=== PATIENT | female | born 1980 | race Caucasian/White ===

== ENCOUNTER 2019-06-05 16:12 | Inpatient (IN) | payer OTHER ==
[~2019-06-05] VITALS: Ht 160 cm; Wt 59.2 kg
[2019-06-05] MEDS ORDERED: ONDANSETRON HCL 4 MG/2 ML VIAL IVP PRN (17:15)
[2019-06-05] MEDS ORDERED: ACETAMINOPHEN 325 MG TABLET PO PRN (17:15)
[2019-06-05] MEDS ORDERED: 0.9% SODIUM CHLORIDE 10 ML SYRINGE IVP PRN (17:15)
[2019-06-05 18:20] LABS: BASOPHILS % (AUTO) 0.8 % (0.0-2.0); EOSINOPHILS % (AUTO) 0.4 % (1.0-6.0); HEMATOCRIT 39.1 % (36-46); HEMOGLOBIN 12.7 g/dL (12.0-16.0); LYMPHOCYTES # (AUTO) 1.8 K/uL (1.0-4.8); LYMPHOCYTES % (AUTO) 20.4 % (22.0-44.0); MEAN CORPUSCULAR HGB CONC 32.6 G/dL (31.0-37.0); MEAN CORPUSCULAR VOLUME 83 fL (80-100); MONOCYTES # (AUTO) 0.5 K/uL (0.1-1.0); MONOCYTES % (AUTO) 5.6 % (2.0-9.0); NEUTROPHILS # (AUTO) 6.4 K/uL (1.8-7.7); NEUTROPHILS % (AUTO) 72.8 % (40.0-70.0); PLATELET COUNT (AUTO) 399 K/uL (150-450); RED BLOOD CELL COUNT(AUTO) 4.73 MIL/uL (4.00-5.20); RED CELL DISTRIBUTION WIDTH 14.4 % (11.5-14.5)
[2019-06-05 18:36] LABS: ANION GAP 9 mmol/L (8-16); CALCIUM, TOTAL 8.8 mg/dL (8.8-10.5); CARBON DIOXIDE 25 mmol/L (22-29); CHLORIDE 104 mmol/L (98-107); CREATININE 0.65 mg/dL (0.60-1.30); GLOMERULAR FILTR. RATE CALC > 60 mL/min (>60); GLUCOSE,RANDOM 99 mg/dL (70-110); POTASSIUM 3.8 mmol/L (3.5-5.1); SODIUM SERUM 138 mmol/L (136-145); UREA NITROGEN, BLOOD 9 mg/dL (7-18)
[2019-06-05 18:50] LABS: ALANINE AMINOTRANSFERASE 22 U/L (12-78); ALBUMIN 3.5 g/dL (3.4-5.0); ALKALINE PHOSPHATASE 92 U/L (46-116); ASPARTATE AMINOTRANSFERASE 25 U/L (15-37); BILIRUBIN,TOTAL 0.3 mg/dL (0.1-1.0); HCG,QUANTITATIVE < 1 mIU/mL (0-6); LIPASE 45 U/L (73-393); TOTAL PROTEIN, SERUM 7.3 g/dL (6.4-8.2)
[2019-06-05 19:35] VITALS: BP 125/79
[2019-06-05] MEDS ORDERED: METOCLOPRAMIDE HCL 5 MG/ML 2 ML VIAL IVP PRN (20:15)
[2019-06-05] MEDS ORDERED: LORazepam 2 MG/ML VIAL IVP PRN (20:15)
[2019-06-05] MEDS ORDERED: DICYCLOMINE HCL 10 MG CAPSULE PO PRN (20:15)
[2019-06-05] MEDS ORDERED: LOPERAMIDE HCL 2 MG CAPSULE PO PRN (20:15)
[2019-06-05] MEDS ORDERED: INFLUENZA VIRUS VACCINE QVS 2019-20 (3YR+)/PF 60 MCG/0.5 ML SYRINGE IM ONE (21:30)
[2019-06-05] MEDS: TEMAZEPAM 15 MG CAPSULE PO SCH (22:05)
[2019-06-06 04:30] VITALS: BP 97/56
[2019-06-06] MEDS: ACETAMINOPHEN/CODEINE 300-15 MG TABLET PO PRN (06:01)
[2019-06-06 08:26] VITALS: BP 98/70
[2019-06-06] MEDS ORDERED: SODIUM CHLORIDE 0.9% 1,000 ML ONE (14:51)
[2019-06-06 16:59] VITALS: BP 104/65
[2019-06-06 20:10] VITALS: BP_SYST 150; BP_SYST 95; BP_DIAS 49; BP_DIAS 85
[2019-06-06] MEDS: TEMAZEPAM 15 MG CAPSULE PO SCH (21:00)
[2019-06-06 23:30] VITALS: BP 94/72
[2019-06-07] MEDS: ACETAMINOPHEN/CODEINE 300-15 MG TABLET PO PRN ×2 (00:22→08:18)
[2019-06-07 04:55] VITALS: BP 106/56
[2019-06-07 08:03] VITALS: BP 96/54
[2019-06-07] MEDS: PANTOPRAZOLE SODIUM 40 MG DR TABLET PO SCH (08:15)
[2019-06-07] MEDS ORDERED: SODIUM CHLORIDE 0.9% 1,000 ML ONE (13:09)
[2019-06-07 16:02] VITALS: BP 102/62
[2019-06-07 20:22] VITALS: BP 94/49
[2019-06-07] MEDS: TEMAZEPAM 15 MG CAPSULE PO SCH (20:51)
[2019-06-08 04:26] VITALS: BP 99/57
[2019-06-08 07:41] VITALS: BP 91/57
[2019-06-08] MEDS: PANTOPRAZOLE SODIUM 40 MG DR TABLET PO SCH (09:51)
[2019-06-08 15:00] VITALS: BP 92/57
[2019-06-08] MEDS ORDERED: SODIUM CHLORIDE 0.9% 1,000 ML ONE (16:23)
[2019-06-08 19:50] VITALS: BP 108/54
[2019-06-08] MEDS: TEMAZEPAM 15 MG CAPSULE PO SCH (21:02)
[2019-06-09 06:22] VITALS: BP 107/68
[2019-06-09 09:06] VITALS: BP 115/74
[2019-06-09] MEDS: PANTOPRAZOLE SODIUM 40 MG DR TABLET PO SCH (09:55)
[2019-06-09] MEDS: ACETAMINOPHEN/CODEINE 300-15 MG TABLET PO PRN (09:57)
[2019-06-09 16:15] VITALS: BP 110/52
[2019-06-09] MEDS ORDERED: DiphenhydrAMINE HCL 25 MG CAPSULE PO PRN (18:15)
[2019-06-09] MEDS ORDERED: ACETAMINOPHEN 325 MG TABLET PO PRN (18:15)
[2019-06-09 19:55] VITALS: BP 95/55
[2019-06-10 04:55] VITALS: BP 111/71
[2019-06-10] MEDS: PANTOPRAZOLE SODIUM 40 MG DR TABLET PO SCH (08:31)
[2019-06-10 11:30] VITALS: BP 107/81
== END 2019-06-10 11:30 | DRG 897 ==
LOC: EMS 16:16 → 6S 18:16
PROVIDERS: ADMIT Internal Medicine; ATTEND Internal Medicine
DX: F11.23 Opioid dependence with withdrawal (principal); F17.210 Nicotine dependence, cigarettes, uncomplicated; F15.10 Other stimulant abuse, uncomplicated; G47.00 Insomnia, unspecified; F41.9 Anxiety disorder, unspecified
CPT/HCPCS: G0480; J2060; J3411; J3475; J3490; J7030